=== PATIENT | male | born 1985 | race Two or more races ===

== ENCOUNTER → 2017-05-21 | Outpatient (CLI) | payer OTHER ==
--- NOTE | 2017-06-07 14:04 | CDE ---
ADMIT: 05/21/2017 RM/LOC: [facility] MR#: [id number] [address] [facility] [address] [place], [place] [address] [facility] [address] [place] [address] Chemical Dependency Evaluation SEX: M AGE: 31 : 1985 CORRECTED: 06/04/2017 1455 NANCY Renae DEMOGRAPHICS: NAME: Jim Ngo DATE OF : 1985 EVALUATING COUNSELOR: NOÉ Manuel, [facility] DATE OF EVALUATION: 05/21/2017. B. PRESENTING PROBLEM/CHIEF COMPLAINT: This client is a 31-year-old male who resides in [place], [place], with his sister. This client reports that his examining officer referred him for this drug and alcohol evaluation. He said that while on probation, he drank alcohol and his examining officer suggested he get an evaluation. He is on probation for a charge of prohibited person with dangerous weapon. He is a convicted felon in [place] and he had a pocket knife. He got pulled over by the police lieutenant precinct who found a pocket knife on this person. C. MEDICAL HISTORY: Client denies having any medical problems and he is not on any medications. D. WORK/SCHOOL/ HISTORY: Client reports that he has his GED. He has never been in the . He is working for [employer] and he works 40 hours a week for them and he works part-time at [employer]. E. ALCOHOL/DRUG ASSESSMENT SUMMARY: ALCOHOL: Client first drank alcohol at age 16, drinking two tall boy beers. He would just drink occasionally with friends, usually two beers. The most he has drank is 10 at a sitting. The last time he drank was May 11, 2017. MARIJUANA: Client reports first smoking it at age 14, one joint two times a month. At age 18, he started smoking more, smoking one blunt at a sitting every other day. The last time he smoked it was when he was arrested on September 17, 2016. COCAINE: Denies any use. AMPHETAMINES: Client used methamphetamines in his 20s about three times a month for two years, about 20 dollars worth at a sitting. He said he really did not like it. The last time he used it was 3-1/2 years ago. HALLUCINOGENS: Denies any use. HEROIN: Denies any use. PRESCRIPTION DRUGS: Denies any misuse. OTHER DRUGS (INHALANTS, OVER THE COUNTER, ETC): Denies any use. NICOTINE: He started smoking at age 23. He smokes daily. He smokes one pack every four days. ADMIT: 05/21/2017 RM/LOC: [facility] MR#: [id number] [address] [id number] [place] [address] Chemical Dependency Evaluation SEX: M AGE: 31 : 1985 F. LEGAL HISTORY: In 2000, in [place], client got a possession of methamphetamines charge. He got five years of probation. He also got charged with lying to an officer and he was kicked out of a program similar to drug court. He had to do two years of halfway. In 2009, he had a forgery charge. He was sentenced to two years halfway, but he got to do six months in [facility]. In 2011, possession of a stolen vehicle, two years halfway but did four months in [facility]. September 17, 2016, he got a charge of prohibited person with dangerous weapon and he got put on probation and then currently, client drank alcohol and his examining officer recommended the evaluation. G. FAMILY/SOCIAL/PEER HISTORY: Client was raised in [place], [place]. He said he had a good family upbringing. He has a great relationship with his mother and his father although they live in [place], so he does not get to see them very often and he has not seen them for a few years. He moved away from home at age 16. He has never been , but he does have three children from two different moms. They live in [place], so he is only able to talk to them and has not seen them for a while. He has seven siblings and they all live in [place] or [place]. He has one sister who lives in [place] and he is currently living with her, and she is a manager utilization review at [employer]. He denies any childhood abuse issues. He was asked about whom he prefers to socialize with, users or nonusers, and he said nonusers. H. PSYCHIATRIC/BEHAVIORAL HISTORY: Client was asked if he has ever been suicidal and he stated no and there is no family history of suicide. He has never been in any counseling for mental health issues. I. COLLATERAL INFORMATION: I contacted client's sister, whom he is living with, and she stated that at this time she has no concerns. 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 THE DRINKER TYPE RATING: Is a measure of how the client perceives their own drinking and/or using. This rating is indicative of how resistant or accepting the person is to the drinking problem. The client chose their rating from the following classifications: ALCOHOL Total Abstainer ADMIT: 05/21/2017 RM/LOC: ADT.GI [facility] MR#: [id number] [address] [id number] [facility] [address] [place] [address] Chemical Dependency Evaluation SEX: M AGE: 31 : 1985 Light Social (non-problem) Drinker Moderate Social (non-problem) Drinker User Heavy Social (non-problem)Drinker Problem Drinker Alcoholic OTHER DRUG Nonuser Light Social (non-problem) User Moderate Social (non-problem) User Heavy Social (non-problem) User Problem User Addicted/Dependent The client rated himself as a light social non-problem drinker and at first shows light social non-problem user of drugs; however, I asked when he was smoking marijuana how would he describe his use, and he said heavy social non- problem user. SUBSTANCE ABUSE SUBTLE SCREENING INVENTORY (SASSI): The SASSI is an assessment tool specifically designed to provide a clearer picture of what lies beneath the facade presented by most patients or clients. Scores on this assessment aid in distinguishing nonabusers from abusers, alcoholics from drug abusers and nondefensive clients from defensive ones. The incorporation of a "denial scale" further enhances the ability to make an accurate recommendation. Client scores are: Face Valid Alcohol (FVA): 0. Face Valid Other Drugs (FVOD): 0. Symptoms (SYM): 0. Obvious Attributes (OAT): 3. Subtle Attributes (SAT): 3. Defensiveness (DEF): 9. Supplemental Addiction Measure (EMRE): 6. Family versus Controls (FAM): 10. Correctional (COR): 3. Random Answering Pattern (RAP): Elevated defensiveness scores may also reflect situational factors. We administered the ASI. Please see attached summary sheet. K. CLINICAL IMPRESSION: This client had good eye contact and answered all questions. He reported that in [place], he participated in a program at [facility]. He said it was ADMIT: 05/21/2017 RM/LOC: [facility] MR#: [id number] [address] [place] [id number] [facility] [address] [place] [id number] Chemical Dependency Evaluation SEX: M AGE: 31 : 1985 yazdanism based. He said he learned a little bit about drug and alcohol issues, but it was more on sikhism and on working. He has not had any other counseling or treatment. DIAGNOSES: 1. F12.20, cannabis use disorder, severe. Criteria showing this diagnosis is a persistent desire or unsuccessful efforts to cut down or control use; a great deal of time spent in activities obtaining, using, or recovering from the effects; craving or strong desire to use; and tolerance, need increased amounts to achieve affects or experiencing a diminished affect with continued use of the same amount. 2. Z651, imprisonment and other incarceration. 3. Z650, conviction, and civil and criminal proceedings without imprisonment - probation. Consequences client has had from his drug or alcohol use are legal, family problems, and financial. This client has never had any drug and alcohol treatments, and this would be important for him to maintain and to learn how to be in recovery. L. RECOMMENDATIONS PRESENTED TO CLIENT: To attend the intensive outpatient program and if unable to stay clean and sober, then a higher level of care may be needed. CLIENT/FAMILY RESPONSE: This client said that he is very busy with his jobs and he does not really think he has the time to do any treatment. He said he would be talking to his examining officer. [facility] CLINICAL ASSESSMENT CRITERIA: Low/Medium/High Dimension 1 = Intoxication and Withdrawal (i.e. history of withdrawal, level of current use): Medium. Dimension 2 = Medical (i.e. , diabetes, medications, chronic conditions): Low. Dimension 3 = Emotional/Behavior Conditions (i.e. psych history, impulsivity, depression, anxiety, trauma history): Medium. Dimension 4 = Treatment Acceptance/Resistance (i.e. past history, minimization/blame, acknowledgement of problem, pressure to seek treatment, does not feel they have a problem): Medium. ADMIT: 05/21/2017 RM/LOC: [facility] MR#: [id number] [address] [address] [facility] [address] [place] [address] Chemical Dependency Evaluation SEX: M AGE: 31 : 1985 Dimension 5 = Relapse Potential (i.e. inability to abstain, use despite consequences, significant preoccupation, relapse despite outpatient treatment attempts): High. Dimension 6 = Recovery/Living Environment (i.e. current users reside in environment, family attitude, lack of consistent adult support in living environment, high exposure to using in social/work environment): High. CRIMINOGENIC RISK FACTORS: Low/Moderate/High Antisocial Attitudes: High. Antisocial Peers: High. Self Control Skills: High. Family Dysfunction: Medium. Past Criminality: High. NOÉ Manuel, GABBI/ benita JOB #: [id number] CC: CORRECTED: 06/04/2017 1455 NANCY
== END | disposition home or self-care (01) ==
LOC: ADTC.GI 12:30
DX: F12.20 Cannabis dependence, uncomplicated (principal); Z65.0 Conviction in civil and criminal proceedings without imprisonment